=== PATIENT | female | born 1970 | race Caucasian/White ===

== ENCOUNTER 2023-10-27 15:53 | Emergency (ER) | payer OTHER, SELFPAY ==
[2023-10-27 16:03] VITALS: BP 143/80
[2023-10-27 16:35] LABS: Urine Albumin Trace (Neg - Trace); Urine Bilirubin Negative (Negative); Urine Character Clear (Clear); Urine Color Yellow; Urine Glucose Negative (Negative); Urine Ketone 1+ (Negative); Urine Leukocyte Trace (Negative); Urine Nitrite Negative (Negative); Urine Occult Blood Negative (Negative); Urine Specific Gravity 1.015 (<1.030); Urine Urobilinogen Negative (Neg - 1+)
[2023-10-27 16:39] LABS: % Basophils 0.4 % (0-2); % Eosinophils 1.5 % (0-6); % Immature Granulocytes 0.5 % (0-0.5); % Lymphocytes 29.6 % (20.5-51.1); % Monocytes 9.4 % (1.7-9.3); % Neutrophils 58.6 % (42.2-75.2); Absolute Eosinophils 0.2 10^3/uL (0-0.7); Absolute Immature Granulocytes 0.1 10^3/uL (0-0.05); Absolute Neutrophils 5.9 10^3/uL (1.4-6.5); Hemoglobin 12.3 g/dL (12.0-16.0); Mean Corp Hgb Conc. 33.2 g/dL (33.0-37.0); Mean Corpuscular Hgb 26.6 pg (27.0-31.0); Mean Corpuscular Volume 80.1 fL (81.0-99.0); Mean Platelet Volume 8.9 fL (7.4-10.4); Nucleated Red Blood Cells % 0 %; Platelet Count 321 10^3/uL (130-400); Red Blood Cell Count 4.62 10^6/uL (4.20-5.40); Red Cell Dist. Width 14.4 % (11.5-14.5); White Blood Cell Count 10.1 10^3/uL (4.8-10.8)
[2023-10-27 16:44] LABS: Urine Mucus Many
[2023-10-27 16:46] LABS: Urine Bacteria Many (Negative); Urine Red Blood Cell 0-2 /HPF (0-2); Urine Squamous Cell 0-2 /LPF (Few); Urine White Cell 0-2 /HPF (0-5)
[2023-10-27 16:47] LABS: ALT (SGPT) 21 U/L (0-35); AST (SGOT) 21 U/L (14-36); Albumin 4.6 g/dl (3.5-5.0); Alkaline Phosphatase 61 U/L (38-126); Blood Urea Nitrogen 14 mg/dl (7-17); Calcium 9.4 mg/dl (8.4-10.2); Carbon Dioxide 23 mmol/L (22-30); Chloride 105 mmol/L (98-107); Glucose 118 mg/dl (70-99); Lipase 92 U/L (23-300); Potassium 4.1 mmol/L (3.5-5.1); Sodium 135 mmol/L (135-145); Total Bilirubin 0.3 mg/dl (0.2-1.3); Total Protein 7.4 g/dl (6.3-8.2); eGFR > 60.00
--- NOTE | 2023-10-27 17:51 | ED.GENMED ---
History of Present Illness
General
Chief Complaint: Abdominal Pain
Source: patient
Time Seen by Provider: 10/27/23 17:07
Travel History
Have you had any contact with someone who has COVID-19?: No
Do you have any symptoms of coronavirus? Fever > 100 degrees, chills, cough, shortness of breath, sore throat, loss of taste or smell, muscle aches, or headache?: No
History of Present Illness
History of Present Illness:
53-year-old female with past medical history of interstitial cystitis, Parker's thyroiditis and anemia presenting the emergency department for evaluation of right upper quadrant abdominal has been waxing and waning for the last 2 weeks, no known
exacerbating or alleviating factors although patient does state to be better when she is standing. Pain is described to be an aching sensation radiates towards the right part of her back and feels similar to previous episodes of right upper
quadrant pain that the patient has had but she states this pain has not really stopped or gotten any better. Patient has a family friend who is a physician assistant manager bilingual at [employer] who recommended patient come to the ER to be evaluated for
possible gallstone. Patient denies any nausea or vomiting but does states she feels a little bit of shortness of breath intermittently. Denies any fevers, chills, rigors, nausea, vomiting, urinary symptoms, bowel changes. Patient does state
mother had a history of clotting disorder and that there are multiple people in family with rheumatological conditions.
Past History
Past History
ED Past Medical History: Hyperthyroidism and Other (Interstitial cystitis, anemia)
ED Past Surgical History: Tonsilectomy
Social History
Tobacco: Non-smoker
Alcohol: Occasional
Drug: None
Personal:
Living: with family
Family History
Family History: Unable to obtain
Review of Systems
Review of Systems
All Other Systems: ROS reviewed and negative except as documented in HPI and ROS
Phy Exam
Physical Exam
Physical Exam:
GENERAL: Alert , in no apparent distress
EYE: clear conjunctiva b/l
HEAD: NCAT
ENT: o/p clr, mmm.
CARDIAC: Regular rate and rhythm .
LUNGS: Clear breath sounds bilaterally, no acute respiratory distress, no wheezes/rales/rhonchi
ABDOMEN: Soft, mildly tender epigastrium and right upper quadrant, no r/g, no cvat, negative Tanner sign, no tenderness at McBurney's point
NEUROLOGICAL: Alert and oriented
SKIN: Warm and dry, skin intact.
MUSCULOSKELETAL: well perfused.
PSYCH: Normal and appropriate interaction.
Scores
Heart Failure Risk
Heart Failure Risk Score: Not Applicable
Heart Score for Chest Pain Patients
STEMI patient?: Not applicable
Withdrawal Assessment of Alcohol
Withdrawal Assessment Completed?: Not applicable
Course
Orders/Labs/Results
Orders:
Orders
10/27/23 16:15
CMP [Comprehensive Metabolic Panel] Urgent
Complete Blood Count/With Diff Urgent
Lipase Urgent
10/27/23 16:21
Urinalysis Reflex To Culture Urgent
Date Specimen was Collected: 10/27/23
Time Specimen was Collected: 16:10
Urine Microscopic Reflex Cult Urgent
Urine Culture Urgent
THONY Source: U
Specimen Description:
Date Specimen was Collected: 10/27/23
Time Specimen was Collected: 16:10
10/27/23 17:38
US Abdomen Complete/Upper Urgent
Comment:
Reason For Exam: RUQ pain
10/27/23 17:56
D-Dimer Urgent
Abnormal Lab Results
10/27/23 10/27/23
16:15 16:21
MCV 80.1 L fL
(81.0-99.0)
MCH 26.6 L pg
(27.0-31.0)
Abs Immat Gran (auto) 0.1 H 10^3/uL
(0-0.05)
Absolute Monos (auto) 1.0 H 10^3/uL
(0.1-0.6)
Monocytes % 9.4 H %
(1.7-9.3)
Creatinine 0.4 L mg/dL
(0.6-1.0)
Glucose 118 H mg/dl
(70-99)
Urine Ketones 1+ A
(Negative)
Leukocyte Esterase Rfl Trace A
(Negative)
Urine Bacteria (Reflex) Many A
(Negative)
10/27/23 16:15
10/27/23 16:15
Vital Signs
Initial and Last Documented VS:
Initial Vital Signs
Temp Pulse Resp BP Pulse Ox
98.7 F 90 15 143/80 98
10/27/23 16:03 10/27/23 16:03 10/27/23 16:03 10/27/23 16:03 10/27/23 16:03
Last Documented Vital Signs
Temp Pulse Resp BP Pulse Ox
98.7 F 77 18 148/79 99
10/27/23 16:03 10/27/23 20:03 10/27/23 20:03 10/27/23 20:03 10/27/23 20:03
MDM/Problems Addressed
Differential Diagnosis Includes:
Regarding cholelithiasis, muscular etiology, PE, GERD/gastritis/duodenitis
MDM/Problems Addressed:
53-year-old female presenting the emergency department for evaluation of right upper quadrant abdominal pain that has been present for about 2 weeks. Symptoms overall unchanged today but patient was concerned for possible gallstones. Symptoms do
not wax and wane with food or drink. Lab work was initiated in triage and there is no leukocytosis or transaminitis. Lipase within normal limits. Will add on an ultrasound however I am a little less suspicious for cholelithiasis as a diagnosis.
Given the location of patient's pain and her reported shortness of breath/cough I did order a D-dimer based off patient's family history/risk factor. Patient is overall well-appearing and anticipate discharge home following remaining workup.
*Radiology
Radiology exam reviewed: radiology read reviewed
*Pulse Oximetry
Patient hypoxic: no
*Critical Care Note
Total Time (30-74mins, 75-104mins- exclusive of procedures): Not Applicable
Data Reviewed
Review of Other/Old Records Reveals: Labs, Records and Testing
Source: patient and records
Patient Management
Escalation/DeEscalation of care consider admission/obs:
Patient US without any abnormal findings. D-dimer negative. Stable for d/c home and outpatient follow up. Patient aware of return precautions.
ED Attending Note
-
Portions of this chart may have been created with voice recognition software.� Occasional wrong word or��sound alike� substitutions may have occurred due to the inherent limitations of voice recognition software.
Discharge Plan
Departure
Patient Disposition: Home (Routine Discharge)
Date of Disposition: 10/27/23
Time of Disposition: 19:54
Patient with high blood pressure during this ER visit?: No
Discharge Problem:
Right upper quadrant abdominal pain
Instructions: Abdominal Pain
Prescriptions:
New
ondansetron 4 mg Tablet,Disintegrating
4 mg PO TIDPRN PRN (Reason: nausea/vomiting) Qty: 10 0RF
No Action
ondansetron [Zofran ODT] 8 MG tablet,disintegrating
8 mg PO Q8HPRN PRN (Reason: nausea vomiting) Qty: 14 0RF
Referrals:
Alhaji Quintana DO [Family Provider] -
Interventions
Interventions:
*Risk Screen - Suicide Last Done: 10/27/23 20:03
*General Assessment Last Done: 10/27/23 20:03
*Neglect/Abuse Screening Last Done: 10/27/23 20:03
ED- Fall Risk Assessment Last Done: 10/27/23 20:03
*ED COVID-19 Vaccine History Last Done: 10/27/23 16:03
*Nursing Disposition Last Done: 10/27/23 20:03
JS-Waobng-Mdffltwltw Assessment Last Done: 10/27/23 17:24
Discharge Date and Time
Discharge Date/Time: 10/27/23 20:03
Print Language: [place]
[2023-10-27 18:32] LABS: D-Dimer < 0.27 ug/mlFEU (0.00-0.50)
[2023-10-27 20:03] VITALS: BP 148/79
== END 2023-10-27 20:03 | disposition home or self-care (01) ==
LOC: EMR 15:53
PROVIDERS: Physician Assistant Medical; EMERGENCY PHYSICIAN Emergency Medicine; FAMILY PHYSICIAN Family Medicine Adult Medicine
DX: R10.11 Right upper quadrant pain (principal)
CPT/HCPCS: 99284; 76700; 80053; 81003; 81015; 83690; 85025; 85379; 87086